=== PATIENT | male | born 1955 | race Caucasian/White ===

== ENCOUNTER → 2017-11-16 | Outpatient (CLI) | payer OTHER | END | disposition home or self-care (01) | LOC: CFH 08:57 | PROVIDERS: ATTEND Internal Medicine Cardiovascular Disease | DX: I11.9 Hypertensive heart disease without heart failure (principal) | CPT/HCPCS: 93306 ==

== ENCOUNTER → 2018-08-19 | Outpatient (CLI) | payer OTHER ==
[~2018-08-19] MED LIST: ACAM333T7 PO; ASPI81TA45 PO; ATOR20TA37 PO; GABA300C10 PO; LISI-170 PO
[2018-08-19 15:27] LABS: ALANINE AMINOTRANSFERASE 39 U/L (12-78); ANION GAP 13 mmol/L (5-15); CALCIUM 7.7 mg/dL (8.5-10.1); CHLORIDE 109 mmol/L (98-107)
[2018-08-19 15:29] LABS: ALKALINE PHOSPHATASE 82 U/L (45-117); BILIRUBIN,TOTAL 4.9 mg/dL (0.2-1.0); TOTAL PROTEIN 5.9 g/dL (6.4-8.2)
[2018-08-19 15:39] LABS: INTERNATIONAL NORMALIZED RATIO 0.99 (0.93-1.1); PROTHROMBIN TIME 10.4 Seconds (9.6-11.5)
[2018-08-19 15:49] LABS: BASOPHILS # (AUTO) 0.03 x10^3/uL (0-0.1); BASOPHILS % (AUTO) 1 % (0-1); EOSINOPHILS % (AUTO) 2 % (1-7); LYMPHOCYTES # (AUTO) 1.45 x10^3/uL (1-3.4); LYMPHOCYTES % (AUTO) 29 % (22-44); MD NO; MEAN CORPUSCULAR HEMOGLOBIN 36.2 pg (27.5-34.5); MEAN CORPUSCULAR HGB CONC 34.8 g/dL (33.2-36.2); MEAN CORPUSCULAR VOLUME 104.2 fL (81-97); MEAN PLATELET VOLUME 6.9 fL (7.4-10.4); MONOCYTES % (AUTO) 8 % (2-9); NEUTROPHILS # (AUTO) 3.08 x10^3/uL (1.8-6.8); NEUTROPHILS % (AUTO) 61 % (42-75); PLATELET COUNT 188 x10^3/uL (130-400); RED CELL DISTRIBUTION WIDTH 14.3 % (9.4-14.8)
[2018-08-19 16:00] LABS: HEMOGLOBIN A1C 4.3 % (4.2-6.3)
== END | disposition home or self-care (01) ==
LOC: STAR 14:04
PROVIDERS: ATTEND Orthopaedic Surgery
DX: Z01.818 Encounter for other preprocedural examination (principal); I49.1 Atrial premature depolarization; R00.0 Tachycardia, unspecified; M17.11 Unilateral primary osteoarthritis, right knee
CPT/HCPCS: 36415; 80053; 83036; 85025; 85610; 85730; 87081; 93005

== ENCOUNTER 2018-08-27 07:51 | Observation (INO) | payer OTHER ==
[~2018-08-27] VITALS: Ht 177.8 cm; Wt 88.1 kg
[2018-08-27] MEDS: NS + 20MEQ KCL 1,000 ML IV SCH ×2 (06:35→23:49)
[~2018-08-27 07:51] MED LIST changes: +ACETAMINOPHEN 650 MG/20.3 ML UDC PO PRN; +BISACODYL 10 MG SUPP PR PRN; +DIPHENHYDRAMINE 50 MG CAPSULE PO PRN; +EPINEPHRINE 1 MG/ML, 1ML ONE; +HYDROmorphone 2 MG/ML, 1ML IV PRN; +KETOROLAC 60 MG/2 ML ONE; +MAGNESIUM HYDROXIDE 8%, 30ML UDC PO PRN; +ONDANSETRON 2MG/ML, 2ML IV PRN; +ONDANSETRON 4 MG TABLET PO PRN; +OXYcodone IR 5MG TABLET PO PRN; +ROPIvacaine/PF 0.5%, 20 ML ONE; +SCOPOLAMINE PATCH, 1.5MG PATCH.TD72 TD ONE; +SENNA/DOCUSATE TABLET PO PRN; +SODIUM CHLORIDE 0.9% 100 ML ONE; +TRANEXAMIC ACID 100 MG/ML, 10ML ONE; +VANCOMYCIN 1,000 MG ONE; +ZOLPIDEM 5MG TABLET PO PRN
[2018-08-27] MEDS ORDERED: LACTATED RINGERS 1,000 ML IV SCH (08:24)
[2018-08-27] MEDS ORDERED: GABAPENTIN 300 MG CAPSULE PO ONE (08:30)
[2018-08-27] MEDS ORDERED: ACETAMINOPHEN 500 MG TABLET PO ONE (08:30)
[2018-08-27] MEDS ORDERED: FENTANYL PF 250 MCG/5ML ONE ×2 (08:44→10:55)
[2018-08-27] MEDS ORDERED: MIDAZOLAM 1 MG/ML, 2ML ONE (08:44)
[2018-08-27] MEDS ORDERED: ROPIvacaine/PF 0.2%, 20 ML ONE (08:47)
[2018-08-27] MEDS ORDERED: NEOSTIGMINE 1 MG/ML, 10ML ONE (08:48)
[2018-08-27] MEDS ORDERED: ROCURONIUM 10MG/ML,5ML ONE (08:48)
[2018-08-27] MEDS ORDERED: CEFAZOLIN 1,000 MG ONE (08:48)
[2018-08-27] MEDS ORDERED: GLYCOPYRROLATE 0.2MG/1ML, 5ML ONE (08:48)
[2018-08-27] MEDS ORDERED: ONDANSETRON 2MG/ML, 2ML ONE (08:48)
[2018-08-27] MEDS ORDERED: PROPOFOL 10 MG/ML, 20ML ONE (08:48)
[2018-08-27] MEDS: DOCUSATE 100 MG CAPSULE PO SCH ×2 (09:00→20:35)
[2018-08-27] MEDS: GABAPENTIN 300 MG CAPSULE PO SCH ×3 (09:00→20:35)
[2018-08-27] MEDS: LISINOPRIL 20 MG TABLET PO SCH (09:00)
[2018-08-27] MEDS ORDERED: TRANEXAMIC ACID 100 MG/ML, 10ML ONE (09:47)
[2018-08-27] MEDS ORDERED: MEPERIDINE/PF 25MG/0.5ML IVPush PRN (10:30)
[2018-08-27] MEDS ORDERED: PROMETHAZINE 12.5 MG SUPP PR PRN (10:30)
[2018-08-27] MEDS ORDERED: ONDANSETRON 2MG/ML, 2ML IV PRN (10:30)
[2018-08-27] MEDS ORDERED: hydrALAzine 20 MG/ML, 1ML IV PRN (10:30)
[2018-08-27] MEDS ORDERED: PROMETHAZINE 25 MG/ML, 1ML IV PRN (10:30)
[2018-08-27] MEDS ORDERED: OXYcodone 5 MG/5 ML ORAL.SOL UDC PO PRN (10:30)
[2018-08-27] MEDS ORDERED: PROMETHAZINE 25 MG/ML, 1ML IM PRN ×2 (10:30)
[2018-08-27] MEDS ORDERED: PROMETHAZINE 25 MG SUPP PR PRN (10:30)
[2018-08-27] MEDS ORDERED: HYDROmorphone 2 MG/ML, 1ML IVPush PRN (10:30)
[2018-08-27] MEDS ORDERED: MORPHINE SULFATE 4 MG/ML, 1ML IVPush PRN (10:30)
[2018-08-27] MEDS ORDERED: LABETALOL 5MG/ML, 20ML IV PRN (10:30)
[2018-08-27] MEDS ORDERED: ONDANSETRON ODT 8 MG PO PRN (10:30)
[2018-08-27] MEDS ORDERED: PHENYLEPHRINE 10 MG/ML ONE (10:31)
[2018-08-27] MEDS ORDERED: OXYcodone 5 MG/5 ML ORAL.SOL UDC ONE (12:02)
[2018-08-27] MEDS ORDERED: FENTANYL PF 100 MCG/2ML ONE (12:09)
[2018-08-27] MEDS: FENTANYL PF 100 MCG/2ML IV PRN ×2 (12:10→12:20)
[2018-08-27 13:45] VITALS: BP 137/73
[2018-08-27] MEDS: TAMSULOSIN 0.4 MG CAP.ER.24H PO SCH (18:38)
[2018-08-27] MEDS: ASPIRIN 81 MG TABLET EC PO SCH (18:38)
[2018-08-27] MEDS: CEFAZOLIN PMX 2GM/50ML 50 ML IVPB SCH (18:39)
[2018-08-27 19:15] VITALS: BP 144/76
[2018-08-27] MEDS: HYDROcodone/APAP 5/325 TABLET PO PRN (20:35)
[2018-08-27] MEDS ORDERED: ATORVASTATIN 20 MG TABLET PO SCH (21:00)
[2018-08-28 01:01] VITALS: BP 101/68
[2018-08-28] MEDS: HYDROcodone/APAP 5/325 TABLET PO PRN ×2 (01:39→08:28)
[2018-08-28] MEDS: CEFAZOLIN PMX 2GM/50ML 50 ML IVPB SCH (03:00)
[2018-08-28] MEDS ORDERED: DEXAMETHASONE 4 MG/ML, 1ML IVPush SCH (06:00)
[2018-08-28] MEDS: ASPIRIN 81 MG TABLET EC PO SCH (06:18)
[2018-08-28 07:13] VITALS: BP 143/81
[2018-08-28] MEDS: NS + 20MEQ KCL 1,000 ML IV SCH (07:35)
[2018-08-28] MEDS: TAMSULOSIN 0.4 MG CAP.ER.24H PO SCH (08:27)
[2018-08-28] MEDS: DOCUSATE 100 MG CAPSULE PO SCH (08:27)
[2018-08-28] MEDS: LISINOPRIL 20 MG TABLET PO SCH (08:28)
[2018-08-28] MEDS: GABAPENTIN 300 MG CAPSULE PO SCH (08:28)
[2018-08-28] MEDS ORDERED: OXYC5CAP2 PO (08:31)
[2018-08-28] MEDS ORDERED: TRAM50TA2 PO (08:32)
[2018-08-28] MEDS ORDERED: MELO7.5T31 PO (08:33)
== END 2018-08-28 09:20 | disposition home or self-care (01) ==
LOC: OUT 07:51 → 4NOR 12:54 → OUT 23:04 → DCLOUNGE 08-28 09:05
PROVIDERS: ADMIT Orthopaedic Surgery; ATTEND Orthopaedic Surgery
DX: M17.12 Unilateral primary osteoarthritis, left knee (principal); Z87.891 Personal history of nicotine dependence
CPT/HCPCS: 27447; 36415; 85014; 85018; 96365; 96366; 96375; 97161; 97166; C1713; C1776; G0378; J0171; J0690; J1100; J1885; J2250; J2370; J2405; J2704; J2710; J2795; J3010; J3370; J7120

== ENCOUNTER 2019-11-08 09:48 | Outpatient (CLI) | payer MEDICARE, OTHER ==
[~2019-11-08 09:48] MED LIST changes: -ACETAMINOPHEN 650 MG/20.3 ML UDC PO PRN; -BISACODYL 10 MG SUPP PR PRN; -DIPHENHYDRAMINE 50 MG CAPSULE PO PRN; -EPINEPHRINE 1 MG/ML, 1ML ONE; -HYDROmorphone 2 MG/ML, 1ML IV PRN; -KETOROLAC 60 MG/2 ML ONE; -MAGNESIUM HYDROXIDE 8%, 30ML UDC PO PRN; +MELO7.5T31 PO; -ONDANSETRON 2MG/ML, 2ML IV PRN; -ONDANSETRON 4 MG TABLET PO PRN; +OXYC5CAP2 PO; -OXYcodone IR 5MG TABLET PO PRN; -ROPIvacaine/PF 0.5%, 20 ML ONE; -SCOPOLAMINE PATCH, 1.5MG PATCH.TD72 TD ONE; -SENNA/DOCUSATE TABLET PO PRN; -SODIUM CHLORIDE 0.9% 100 ML ONE; +TRAM50TA2 PO; -TRANEXAMIC ACID 100 MG/ML, 10ML ONE; -VANCOMYCIN 1,000 MG ONE; -ZOLPIDEM 5MG TABLET PO PRN
== END 2019-11-08 23:59 | disposition home or self-care (01) ==
LOC: CFH 09:48
PROVIDERS: ATTEND Physician Assistant Medical
DX: R94.31 Abnormal electrocardiogram [ECG] [EKG] (principal)
CPT/HCPCS: 93306

== ENCOUNTER → 2019-11-28 | Outpatient (CLI) | payer MEDICARE | END | disposition home or self-care (01) | LOC: CARD 12:28 | PROVIDERS: ATTEND Physician Assistant Medical | DX: J44.9 Chronic obstructive pulmonary disease, unspecified (principal); R06.02 Shortness of breath; R94.31 Abnormal electrocardiogram [ECG] [EKG]; I10 Essential (primary) hypertension | CPT/HCPCS: 94060; 94726; 94729 ==

== ENCOUNTER 2019-12-01 13:58 | Inpatient (IN) | payer MEDICARE ==
[~2019-12-01] VITALS: Ht 177.8 cm; Wt 89.3 kg
[~2019-12-01 13:58] MED LIST changes: -METO-93 PO; -MIRT15TA94 PO; -RIVA1TAB PO; -RIVA20TA PO
[2019-12-01 14:59] LABS: MEAN CORPUSCULAR HEMOGLOBIN 37.5 pg (27.5-34.5); MEAN CORPUSCULAR HGB CONC 33.1 g/dL (33.2-36.2); MEAN CORPUSCULAR VOLUME 113.1 fL (81-97); PLATELET COUNT 168 x10^3/uL (130-400); RED BLOOD COUNT 3.46 x10^6/uL (4.38-5.82)
[2019-12-01 15:00] LABS: ALBUMIN 3.1 g/dL (3.4-5.0); ANION GAP 11 mmol/L (5-15); CALCIUM 8.2 mg/dL (8.5-10.1); CHLORIDE 110 mmol/L (98-107); CREATININE 1.04 mg/dL (0.7-1.3)
--- NOTE | 2019-12-01 15:05 | NUR ---
PT RESTING ON GURNEY W/ CALL LIGHT IN REACH AND SIDE RAILS UPX2. RESP EVEN AND UNLABORED, NADN. AWAITING CTA.
[2019-12-01 15:09] LABS: INTERNATIONAL NORMALIZED RATIO 0.98 (0.93-1.1); PROTHROMBIN TIME 10.1 Seconds (9.6-11.5)
[2019-12-01 15:14] LABS: BASOPHILS # (AUTO) 0.05 x10^3/uL (0-0.1); BASOPHILS % (AUTO) 1 % (0-1); EOSINOPHILS # (AUTO) 0.12 x10^3/uL (0-0.4); EOSINOPHILS % (AUTO) 2 % (1-7); LYMPHOCYTES # (AUTO) 0.58 x10^3/uL (1-3.4); LYMPHOCYTES % (AUTO) 10 % (22-44); MD SCAN; MONOCYTES # (AUTO) 0.26 x10^3/uL (0.2-0.8); MONOCYTES % (AUTO) 4 % (2-9); NEUTROPHILS # (AUTO) 4.81 x10^3/uL (1.8-6.8); NEUTROPHILS % (AUTO) 83 % (42-75)
[2019-12-01] MEDS ORDERED: OMNIPAQUE 350 MG/ML, 75ML BOTTLE ONE (15:42)
[2019-12-01] MEDS ORDERED: MIRT15TA94 PO (15:52)
[2019-12-01] MEDS ORDERED: METO-93 PO (15:52)
[2019-12-01] MEDS ORDERED: HEPARIN 5,000 UNITS/ML, 1ML IV ONE (16:30)
[2019-12-01] MEDS ORDERED: HEPARIN 5,000 UNITS/ML, 1ML ONE (16:31)
[2019-12-01] MEDS ORDERED: HEPARIN 25,000 UNITS/250ML PMX 250 ML ONE (16:31)
[2019-12-01] MEDS: HEPARIN 5,000 UNITS/ML, 1ML IV PRN (16:36)
[2019-12-01] MEDS: HEPARIN 25,000 UNITS/250ML PMX 250 ML IV PRN (16:40)
--- NOTE | 2019-12-01 16:41 | NUR ---
HEPARIN STARTED PER EMAR. ANTI XA ORDERED FOR 6 HOURS AFTER START. PT RESTING ON GURNEY W/C CALL LIGHT IN REACH, SIDE RAILS UPX2. RAF FABIAN. AWAITING ADMIT.
[2019-12-01] MEDS ORDERED: POTASSIUM CHLORIDE 20 MEQ TAB.ER.PRT PO ONE (17:00)
[2019-12-01] MEDS ORDERED: POTASSIUM CHLORIDE 20 MEQ TAB.ER.PRT ONE (17:22)
--- NOTE | 2019-12-01 17:46 | NUR ---
ATTEMPT TO CALL REPORT. RN UNAVAILBLE AT THIS TIME. WILL CALL BACK WHEN READY.
[2019-12-01] MEDS ORDERED: ONDANSETRON ODT 4 MG PO PRN (18:00)
[2019-12-01] MEDS ORDERED: METHOCARBAMOL 500 MG TABLET PO PRN (18:00)
[2019-12-01] MEDS ORDERED: ONDANSETRON 2MG/ML, 2ML IVPush PRN (18:00)
[2019-12-01] MEDS ORDERED: TRAZODONE 50MG TABLET PO PRN (18:00)
[2019-12-01] MEDS ORDERED: MELATONIN 5 MG TABLET PO PRN (18:00)
[2019-12-01] MEDS ORDERED: ACETAMINOPHEN 325 MG TABLET PO PRN (18:00)
[2019-12-01] MEDS: ACAMPROSATE 333 MG TABLET.DR PO SCH (21:07)
[2019-12-01] MEDS: GABAPENTIN 300 MG CAPSULE PO SCH (21:07)
[2019-12-01] MEDS: LACTATED RINGERS 1,000 ML IV SCH (21:08)
[2019-12-01 21:45] VITALS: BP 128/65
[2019-12-02] MEDS: HEPARIN 5,000 UNITS/ML, 1ML IV PRN ×3 (00:33→14:28)
[2019-12-02 02:44] VITALS: BP 118/68
[2019-12-02 05:52] LABS: ALBUMIN 2.4 g/dL (3.4-5.0); ANION GAP 7 mmol/L (5-15); CALCIUM 8.1 mg/dL (8.5-10.1); CHLORIDE 112 mmol/L (98-107)
[2019-12-02 05:59] LABS: ALANINE AMINOTRANSFERASE 33 U/L (12-78); ALKALINE PHOSPHATASE 97 U/L (45-117); BILIRUBIN,TOTAL 1.1 mg/dL (0.2-1.0); CHOL/HDL RATIO 4.3; CHOLESTEROL, TOTAL 147 mg/dL (140-239); HDL CHOL % 23 % (26-37); HDL CHOLESTEROL (DIRECT) 34 mg/dL (40-60); LDL CHOLESTEROL,CALCULATED 77 mg/dL (54-169); LDL/HDL RATIO 2.3 (0.5-3.0); TOTAL PROTEIN 5.5 g/dL (6.4-8.2); TRIGLYCERIDES 178 mg/dL (50-200); VLDL CHOLESTEROL 36 mg/dL (0-25)
[2019-12-02 06:09] LABS: MEAN CORPUSCULAR HEMOGLOBIN 37.5 pg (27.5-34.5); MEAN CORPUSCULAR HGB CONC 33.4 g/dL (33.2-36.2); MEAN CORPUSCULAR VOLUME 112.1 fL (81-97); PLATELET COUNT 133 x10^3/uL (130-400); RED BLOOD COUNT 2.82 x10^6/uL (4.38-5.82)
[2019-12-02] MEDS: LACTATED RINGERS 1,000 ML IV SCH ×2 (06:37→17:00)
[2019-12-02 06:38] LABS: LYMPHOCYTES % (AUTO) 19 % (22-44); MONOCYTES % (AUTO) 7 % (2-9); NEUTROPHILS % (AUTO) 67 % (42-75)
[2019-12-02 06:39] LABS: BASOPHILS # (AUTO) 0.08 x10^3/uL (0-0.1); BASOPHILS % (AUTO) 2 % (0-1); EOSINOPHILS # (AUTO) 0.16 x10^3/uL (0-0.4); EOSINOPHILS % (AUTO) 4 % (1-7); LYMPHOCYTES # (AUTO) 0.69 x10^3/uL (1-3.4); MD SCAN; MONOCYTES # (AUTO) 0.27 x10^3/uL (0.2-0.8); NEUTROPHILS # (AUTO) 2.47 x10^3/uL (1.8-6.8)
[2019-12-02 07:22] VITALS: BP 133/74
[2019-12-02] MEDS: GABAPENTIN 300 MG CAPSULE PO SCH ×2 (08:04→16:28)
[2019-12-02] MEDS: ACAMPROSATE 333 MG TABLET.DR PO SCH ×2 (08:04→16:27)
[2019-12-02] MEDS ORDERED: ASPIRIN 81 MG TABLET EC PO SCH (09:00)
[2019-12-02] MEDS ORDERED: MIRTAZAPINE 15 MG TAB.RAPDIS PO SCH (09:00)
[2019-12-02] MEDS ORDERED: METOPROLOL SUCCINATE 50 MG TAB.ER.24H PO SCH (09:00)
[2019-12-02 12:55] VITALS: BP 131/72
[2019-12-02] MEDS: HEPARIN 25,000 UNITS/250ML PMX 250 ML IV PRN (13:13)
[2019-12-02] MEDS ORDERED: RIVA1TAB PO (14:48)
[2019-12-02] MEDS ORDERED: RIVA20TA PO (14:48)
== END 2019-12-02 18:35 | disposition home or self-care (01) | DRG 299 ==
LOC: ED 15:45 → SUATTDRO 17:00 → 5SO 18:19
PROVIDERS: ADMIT Internal Medicine; ATTEND Internal Medicine
DX: I82.411 Acute embolism and thrombosis of right femoral vein (principal); I26.09 Other pulmonary embolism with acute cor pulmonale; J96.01 Acute respiratory failure with hypoxia; I82.441 Acute embolism and thrombosis of right tibial vein; I82.431 Acute embolism and thrombosis of right popliteal vein; Z96.651 Presence of right artificial knee joint; E87.6 Hypokalemia; Z87.891 Personal history of nicotine dependence
CPT/HCPCS: 36415; 71275; 80048; 80053; 80061; 82040; 82378; 83735; 84100; 85025; 85520; 85610; 93005; 93308; 93321; 93325; G0103; G0378; J1644; Q9967; J7120

== ENCOUNTER → 2019-12-01 | Outpatient (CLI) | payer MEDICARE ==
[~2019-12-01] MED LIST changes: +METO-93 PO; +MIRT15TA94 PO; +RIVA1TAB PO; +RIVA20TA PO
== END | disposition home or self-care (01) ==
LOC: CFH 12:15
PROVIDERS: ATTEND Physician Assistant Surgical
DX: I82.411 Acute embolism and thrombosis of right femoral vein (principal); I82.431 Acute embolism and thrombosis of right popliteal vein; I82.441 Acute embolism and thrombosis of right tibial vein

== ENCOUNTER 2020-01-09 12:22 | Outpatient (CLI) | payer MEDICARE ==
[~2020-01-09 12:22] MED LIST changes: +METO-93 PO; +MIRT15TA94 PO; +RIVA1TAB PO; +RIVA20TA PO
[2020-01-11] MEDS ORDERED: REGADENOSON 0.4 MG/5 ML SYRINGE ONE (11:20)
== END 2020-01-09 23:59 | disposition home or self-care (01) ==
LOC: CFH 12:22
PROVIDERS: ATTEND Physician Assistant Medical
DX: I10 Essential (primary) hypertension (principal); R94.31 Abnormal electrocardiogram [ECG] [EKG]; R06.02 Shortness of breath; J44.9 Chronic obstructive pulmonary disease, unspecified
CPT/HCPCS: 78452; 93017; A9502

== ENCOUNTER → 2020-05-23 | Outpatient (CLI) | payer MEDICARE ==
[~2020-05-23] MED LIST changes: +OMNIPAQUE 350 MG/ML, 100ML BOTTLE ONE
== END | disposition home or self-care (01) ==
LOC: CFH 07:27
PROVIDERS: ATTEND Family Medicine
DX: K76.0 Fatty (change of) liver, not elsewhere classified (principal); D44.12 Neoplasm of uncertain behavior of left adrenal gland; E27.8 Other specified disorders of adrenal gland; N20.0 Calculus of kidney; I70.0 Atherosclerosis of aorta
CPT/HCPCS: 74160; Q9967

== ENCOUNTER 2020-10-03 11:49 | Inpatient (IN) | payer MEDICARE ==
[~2020-10-03] VITALS: Ht 177.8 cm; Wt 82.8 kg
[~2020-10-03 11:49] MED LIST changes: -OMNIPAQUE 350 MG/ML, 100ML BOTTLE ONE
--- NOTE | 2020-10-03 11:52 | NUR ---
PT BROUHGT IN BY WILLARD FROM HOME WITH CHIEF COMPLAINT OF SOB/DIZZY, FREQUENT FALLS SINCE COLONOSCOPY THURSDAY. PT IS ALERT AND ORIENTED, ABLE TO SPEAK FULL SENTANCES
[2020-10-03] MEDS ORDERED: SODIUM CHLORIDE 0.9% 1,000ML IVBOLUS ONE ×3 (12:00→13:30)
[2020-10-03] MEDS ORDERED: SODIUM CHLORIDE FLUSH 10ML SYR IVF ONE (12:00)
--- NOTE | 2020-10-03 12:13 | NUR ---
PT TO IMAGING
--- NOTE | 2020-10-03 12:23 | NUR ---
PT DENIES NEURO CHANGES
--- NOTE | 2020-10-03 12:54 | NUR ---
PT RESTING IN BED, CALL LIGHT IN REACH.
[2020-10-03 12:59] LABS: ALBUMIN 2.6 g/dL (3.4-5.0); BASOPHILS % (AUTO) 0 % (0-1); EOSINOPHILS % (AUTO) 0 % (1-7); LYMPHOCYTES % (AUTO) 6 % (22-44); MEAN CORPUSCULAR HEMOGLOBIN 36.3 pg (27.5-34.5); MEAN CORPUSCULAR HGB CONC 33.1 g/dL (33.2-36.2); MEAN PLATELET VOLUME 10.1 fL (7.4-10.4); MONOCYTES % (AUTO) 9 % (2-9); NEUTROPHILS % (AUTO) 85 % (42-75); PLATELET COUNT 144 x10^3/uL (130-400); RED BLOOD COUNT 3.14 x10^6/uL (4.38-5.82); RED CELL DISTRIBUTION WIDTH 13.7 % (9.4-14.8)
[2020-10-03 13:03] LABS: TROPONIN I < 0.015 ng/mL (0.000-0.045)
[2020-10-03 13:06] LABS: ANION GAP 27 mmol/L (5-15); CHLORIDE 102 mmol/L (98-107)
--- NOTE | 2020-10-03 13:25 | NUR ---
KODY JOHNSON AT BEDSIDE
[2020-10-03] MEDS ORDERED: SODIUM BICARBONATE 8.4% 150 MEQ in DEXTROSE 5% 1,000 ML IV ONE (13:30)
[2020-10-03] MEDS ORDERED: PANTOPRAZOLE 80 MG in SODIUM CHLORIDE 0.9% 50 ML IVPB ONE (14:00)
[2020-10-03] MEDS ORDERED: PANTOPRAZOLE 80 MG in SODIUM CHLORIDE 0.9% 100 ML IV SCH (14:00)
--- NOTE | 2020-10-03 14:17 | NUR ---
MD HERNANDEZ AT BEDSIDE TO EDWIGE
[2020-10-03] MEDS ORDERED: SODIUM BICARBONATE 8.4% 150 MEQ in DEXTROSE 5% 1,000 ML IV SCH (14:30)
[2020-10-03] MEDS ORDERED: MELATONIN 5 MG TABLET PO PRN (14:30)
[2020-10-03] MEDS ORDERED: ONDANSETRON 2MG/ML, 2ML IVPush PRN (14:30)
[2020-10-03] MEDS ORDERED: DOCUSATE 100 MG CAPSULE PO PRN (14:30)
[2020-10-03] MEDS ORDERED: HEPARIN 5,000 UNITS/ML, 1ML SQ SCH (14:30)
[2020-10-03] MEDS ORDERED: hydrALAzine 20 MG/ML, 1ML IVPush PRN (14:30)
[2020-10-03 14:50] LABS: PROTHROMBIN TIME 10.7 Seconds (9.6-11.5)
--- NOTE | 2020-10-03 14:59 | NUR ---
CT WAITING FOR LAB AND CENTRAL LINE TO BE FINISHED
[2020-10-03] MEDS ORDERED: CALCIUM GLUCONATE 4.6 MEQ in SODIUM CHLORIDE 0.9% 100 ML IV ONE (15:00)
--- NOTE | 2020-10-03 15:04 | NUR ---
CVAD PLACED BY KODY JOHNSON PT TOLERATED WELL.
[2020-10-03 15:09] LABS: O2 FLOW ROOM AIR L/min
--- NOTE | 2020-10-03 15:09 | NUR ---
Pt to CT
[2020-10-03 15:10] LABS: MICROSCOPIC INDICATED
--- NOTE | 2020-10-03 15:25 | NUR ---
Report called to Pao TAYLOR,
[2020-10-03] MEDS: SODIUM BICARBONATE 8.4% 150 MEQ in DEXTROSE 5% 1,000 ML IV SCH ×2 (15:45→19:28)
[2020-10-03 16:05] LABS: ACETONE, SERUM Moderate(40mg/dL) (Negative); ALBUMIN 2.6 g/dL (3.4-5.0)
[2020-10-03 16:35] LABS: BILIRUBIN, DIRECT 0.3 mg/dL (0.1-0.2); BILIRUBIN,INDIRECT 0.3 mg/dL (0.0-2.0); BILIRUBIN,TOTAL 0.6 mg/dL (0.2-1.0); FREE T4 (FREE THYROXINE) 0.7 ng/dL (0.76-1.46); TOTAL PROTEIN 6.6 g/dL (6.4-8.2)
[2020-10-03 17:24] LABS: ANION GAP 25 mmol/L (5-15); CHLORIDE 105 mmol/L (98-107)
[2020-10-03 17:32] LABS: POTASSIUM,URINE RANDOM 24 mmol/L; SODIUM,URINE RANDOM 13 mmol/L
[2020-10-03 17:47] LABS: CALCIUM 5.5 mg/dL (8.5-10.1)
[2020-10-03 17:48] LABS: CHLORIDE,URINE RANDOM < 10 mmol/L
[2020-10-03] MEDS: NOREPINEPHRINE 8 MG in SODIUM CHLORIDE 0.9% 242 ML IV PRN ×2 (18:30→18:45)
[2020-10-03] MEDS: PANTOPRAZOLE 40 MG IV IVPush SCH (22:44)
[2020-10-04] MEDS: SODIUM BICARBONATE 8.4% 150 MEQ in DEXTROSE 5% 1,000 ML IV SCH (04:01)
[2020-10-04] MEDS: NOREPINEPHRINE 8 MG in SODIUM CHLORIDE 0.9% 242 ML IV PRN ×2 (04:02→20:47)
[2020-10-04 04:37] LABS: BASOPHILS % (AUTO) 0 % (0-1); EOSINOPHILS % (AUTO) 1 % (1-7); LYMPHOCYTES % (AUTO) 15 % (22-44); MEAN CORPUSCULAR HEMOGLOBIN 37.4 pg (27.5-34.5); MEAN CORPUSCULAR HGB CONC 35.5 g/dL (33.2-36.2); MEAN PLATELET VOLUME 9.3 fL (7.4-10.4); MONOCYTES % (AUTO) 11 % (2-9); NEUTROPHILS % (AUTO) 74 % (42-75); PLATELET COUNT 89 x10^3/uL (130-400); RED BLOOD COUNT 2.59 x10^6/uL (4.38-5.82); RED CELL DISTRIBUTION WIDTH 13.9 % (9.4-14.8)
[2020-10-04 04:42] LABS: ALANINE AMINOTRANSFERASE 15 U/L (12-78); ALBUMIN 2.1 g/dL (3.4-5.0); ANION GAP 15 mmol/L (5-15); CALCIUM 6.3 mg/dL (8.5-10.1); CHLORIDE 102 mmol/L (98-107); CHOLESTEROL, TOTAL 179 mg/dL (140-239); CREATININE 7.57 mg/dL (0.7-1.3)
[2020-10-04 04:44] LABS: ALKALINE PHOSPHATASE 81 U/L (45-117); BILIRUBIN,TOTAL 0.6 mg/dL (0.2-1.0); CHOL/HDL RATIO 6.9; HDL CHOL % 15 % (26-37); HDL CHOLESTEROL (DIRECT) 26 mg/dL (40-60); LDL CHOLESTEROL,CALCULATED 83 mg/dL (54-169); LDL/HDL RATIO 3.2 (0.5-3.0); TOTAL PROTEIN 5.2 g/dL (6.4-8.2); TRIGLYCERIDES 351 mg/dL (50-200); VLDL CHOLESTEROL 70 mg/dL (0-25)
[2020-10-04] MEDS: PANTOPRAZOLE 40 MG IV IVPush SCH (08:18)
[2020-10-04] MEDS: SODIUM BICARBONATE 8.4% 75 MEQ in SODIUM CHLORIDE 0.45% 1,000 ML IV SCH ×2 (11:01→18:33)
[2020-10-04] MEDS: PANTOPRAZOLE 40MG TABLET PO SCH (19:34)
[2020-10-04] MEDS: ACETAMINOPHEN 325 MG TABLET PO PRN (20:25)
[2020-10-05] MEDS: SODIUM BICARBONATE 8.4% 75 MEQ in SODIUM CHLORIDE 0.45% 1,000 ML IV SCH (02:43)
[2020-10-05 03:36] LABS: BASOPHILS % (AUTO) 1 % (0-1); EOSINOPHILS % (AUTO) 1 % (1-7); LYMPHOCYTES % (AUTO) 14 % (22-44); MEAN CORPUSCULAR HEMOGLOBIN 37.4 pg (27.5-34.5); MEAN PLATELET VOLUME 8.9 fL (7.4-10.4); MONOCYTES % (AUTO) 15 % (2-9); NEUTROPHILS % (AUTO) 70 % (42-75); PLATELET COUNT 59 x10^3/uL (130-400); RED BLOOD COUNT 2.43 x10^6/uL (4.38-5.82)
[2020-10-05 03:45] LABS: ANION GAP 5 mmol/L (5-15); CALCIUM 6.7 mg/dL (8.5-10.1); CHLORIDE 99 mmol/L (98-107); CREATININE 2.95 mg/dL (0.7-1.3)
[2020-10-05] MEDS: ACETAMINOPHEN 325 MG TABLET PO PRN ×2 (04:20→18:55)
[2020-10-05] MEDS: PANTOPRAZOLE 40MG TABLET PO SCH ×2 (06:02→17:01)
[2020-10-05] MEDS: CALCITRIOL 0.25 MCG CAPSULE PO SCH (09:17)
[2020-10-05] MEDS: POTASSIUM CHLORIDE 20 MEQ in SODIUM CHLORIDE 0.9% 1,000 ML IV SCH (14:07)
[2020-10-05 19:51] VITALS: BP 115/67
[2020-10-06] MEDS: POTASSIUM CHLORIDE 20 MEQ in SODIUM CHLORIDE 0.9% 1,000 ML IV SCH ×3 (01:21→22:27)
[2020-10-06 01:38] VITALS: BP 121/68
[2020-10-06] MEDS: PANTOPRAZOLE 40MG TABLET PO SCH ×2 (05:15→17:56)
[2020-10-06 06:02] LABS: BASOPHILS % (AUTO) 1 % (0-1); EOSINOPHILS % (AUTO) 4 % (1-7); LYMPHOCYTES % (AUTO) 13 % (22-44); MEAN CORPUSCULAR HEMOGLOBIN 37.3 pg (27.5-34.5); MEAN CORPUSCULAR HGB CONC 34.6 g/dL (33.2-36.2); MEAN PLATELET VOLUME 9.6 fL (7.4-10.4); MONOCYTES % (AUTO) 10 % (2-9); NEUTROPHILS % (AUTO) 73 % (42-75); PLATELET COUNT 62 x10^3/uL (130-400); RED BLOOD COUNT 2.46 x10^6/uL (4.38-5.82); RED CELL DISTRIBUTION WIDTH 13.1 % (9.4-14.8)
[2020-10-06 06:13] LABS: ANION GAP 5 mmol/L (5-15); CALCIUM 7.9 mg/dL (8.5-10.1); CHLORIDE 110 mmol/L (98-107)
[2020-10-06 07:28] VITALS: BP 128/69
[2020-10-06] MEDS: CALCITRIOL 0.25 MCG CAPSULE PO SCH (09:24)
[2020-10-06 13:44] VITALS: BP 144/75
[2020-10-06 20:00] VITALS: BP 145/75
[2020-10-06] MEDS: ACETAMINOPHEN 325 MG TABLET PO PRN (20:47)
[2020-10-07 01:59] VITALS: BP 115/65
[2020-10-07] MEDS: ACETAMINOPHEN 325 MG TABLET PO PRN ×3 (05:06→23:56)
[2020-10-07] MEDS: PANTOPRAZOLE 40MG TABLET PO SCH ×2 (05:06→16:15)
[2020-10-07 05:17] LABS: BASOPHILS % (AUTO) 0 % (0-1); EOSINOPHILS % (AUTO) 5 % (1-7); LYMPHOCYTES % (AUTO) 15 % (22-44); MEAN CORPUSCULAR HGB CONC 34.7 g/dL (33.2-36.2); MEAN PLATELET VOLUME 9.2 fL (7.4-10.4); MONOCYTES % (AUTO) 9 % (2-9); NEUTROPHILS % (AUTO) 71 % (42-75); PLATELET COUNT 70 x10^3/uL (130-400); RED BLOOD COUNT 2.48 x10^6/uL (4.38-5.82); RED CELL DISTRIBUTION WIDTH 13.1 % (9.4-14.8)
[2020-10-07 05:21] LABS: ALBUMIN 1.8 g/dL (3.4-5.0); ANION GAP 5 mmol/L (5-15); CALCIUM 7.8 mg/dL (8.5-10.1); CHLORIDE 113 mmol/L (98-107)
[2020-10-07 05:26] LABS: ALANINE AMINOTRANSFERASE 12 U/L (12-78); ALKALINE PHOSPHATASE 78 U/L (45-117); BILIRUBIN,TOTAL 0.7 mg/dL (0.2-1.0); CREATININE 1.25 mg/dL (0.7-1.3); TOTAL PROTEIN 5.3 g/dL (6.4-8.2)
[2020-10-07] MEDS: CALCITRIOL 0.25 MCG CAPSULE PO SCH (08:20)
[2020-10-07 08:43] VITALS: BP 136/77
[2020-10-07 13:14] VITALS: BP 139/86
[2020-10-08 00:32] VITALS: BP 130/76
[2020-10-08] MEDS: PANTOPRAZOLE 40MG TABLET PO SCH ×2 (05:54→16:42)
[2020-10-08 06:16] LABS: BASOPHILS % (AUTO) 1 % (0-1); EOSINOPHILS % (AUTO) 7 % (1-7); LYMPHOCYTES % (AUTO) 17 % (22-44); MEAN CORPUSCULAR HEMOGLOBIN 37.2 pg (27.5-34.5); MEAN CORPUSCULAR HGB CONC 34.7 g/dL (33.2-36.2); MEAN PLATELET VOLUME 8.6 fL (7.4-10.4); MONOCYTES % (AUTO) 7 % (2-9); NEUTROPHILS % (AUTO) 68 % (42-75); PLATELET COUNT 80 x10^3/uL (130-400); RED CELL DISTRIBUTION WIDTH 13.2 % (9.4-14.8)
[2020-10-08 06:22] LABS: ANION GAP 5 mmol/L (5-15); CALCIUM 8.3 mg/dL (8.5-10.1); CHLORIDE 113 mmol/L (98-107); CREATININE 1.09 mg/dL (0.7-1.3)
[2020-10-08 07:45] VITALS: BP 144/78
[2020-10-08] MEDS: CALCITRIOL 0.25 MCG CAPSULE PO SCH (08:43)
[2020-10-08 12:58] VITALS: BP 124/74
[2020-10-08] MEDS ORDERED: ERGOCALCIFEROL 50,000 UNIT CAPSULE PO SCH (13:00)
[2020-10-08 18:56] VITALS: BP 128/65
[2020-10-08] MEDS: ACETAMINOPHEN 325 MG TABLET PO PRN (23:04)
[2020-10-09 00:23] VITALS: BP 135/65
[2020-10-09] MEDS: PANTOPRAZOLE 40MG TABLET PO SCH ×2 (05:52→17:16)
[2020-10-09 06:08] LABS: BASOPHILS % (AUTO) 1 % (0-1); EOSINOPHILS % (AUTO) 7 % (1-7); LYMPHOCYTES % (AUTO) 19 % (22-44); MEAN CORPUSCULAR HEMOGLOBIN 36.7 pg (27.5-34.5); MEAN CORPUSCULAR HGB CONC 34.8 g/dL (33.2-36.2); MEAN PLATELET VOLUME 8.4 fL (7.4-10.4); MONOCYTES % (AUTO) 9 % (2-9); NEUTROPHILS % (AUTO) 65 % (42-75); PLATELET COUNT 96 x10^3/uL (130-400); RED CELL DISTRIBUTION WIDTH 13.2 % (9.4-14.8)
[2020-10-09 06:14] LABS: ANION GAP 6 mmol/L (5-15); CHLORIDE 114 mmol/L (98-107); CREATININE 0.96 mg/dL (0.7-1.3)
[2020-10-09 06:15] LABS: ALBUMIN 1.8 g/dL (3.4-5.0)
[2020-10-09 07:03] VITALS: BP 151/77
[2020-10-09] MEDS ORDERED: PANT20TA2 PO (09:57)
[2020-10-09] MEDS ORDERED: METO25TA91 PO (09:57)
[2020-10-09] MEDS ORDERED: THIA100T27 PO (09:57)
[2020-10-09] MEDS ORDERED: THIA100T67 PO (09:57)
[2020-10-09] MEDS ORDERED: MULT-449 PO (09:57)
[2020-10-09] MEDS ORDERED: THIAMINE 100MG TABLET PO SCH (10:00)
[2020-10-09] MEDS ORDERED: MULTIVIT.W/IRON, MINERALS ORAL SOL PO SCH (10:00)
== END 2020-10-09 18:01 | DRG 682 ==
LOC: ED 13:03 → EDIP 14:26 → CCU 15:42 → 4EST 10-05 17:09
PROVIDERS: ADMIT Hospitalist; ATTEND Internal Medicine
PROC: 02HV33Z Insertion of Infusion Device into Superior Vena Cava, Percutaneous Approach (ICD-10-PCS; principal; 2020-10-03)
PROC: 02HV33Z Insertion of Infusion Device into Superior Vena Cava, Percutaneous Approach (ICD-10-PCS; 2020-10-03)
PROC: 5A1D70Z Performance of Urinary Filtration, Intermittent, Less than 6 Hours Per Day (ICD-10-PCS; 2020-10-03)
PROC: B548ZZA Ultrasonography of Superior Vena Cava, Guidance (ICD-10-PCS; 2020-10-03)
PROC: B548ZZA Ultrasonography of Superior Vena Cava, Guidance (ICD-10-PCS; 2020-10-03)
PROC: 0T9B70Z Drainage of Bladder with Drainage Device, Via Natural or Artificial Opening (ICD-10-PCS; 2020-10-03)
PROC: 5A1D70Z Performance of Urinary Filtration, Intermittent, Less than 6 Hours Per Day (ICD-10-PCS; 2020-10-04)
PROC: 5A1D70Z Performance of Urinary Filtration, Intermittent, Less than 6 Hours Per Day (ICD-10-PCS; 2020-10-05)
DX: N17.0 Acute kidney failure with tubular necrosis (principal); G93.41 Metabolic encephalopathy; R57.1 Hypovolemic shock; K92.2 Gastrointestinal hemorrhage, unspecified; I50.32 Chronic diastolic (congestive) heart failure; E44.0 Moderate protein-calorie malnutrition; E87.4 Mixed disorder of acid-base balance; E87.5 Hyperkalemia; N25.81 Secondary hyperparathyroidism of renal origin; D53.9 Nutritional anemia, unspecified; D69.6 Thrombocytopenia, unspecified; D72.829 Elevated white blood cell count, unspecified; E55.9 Vitamin D deficiency, unspecified; E87.6 Hypokalemia; I11.0 Hypertensive heart disease with heart failure; I77.810 Thoracic aortic ectasia; N20.0 Calculus of kidney; Z82.3 Family history of stroke; Z86.711 Personal history of pulmonary embolism; Z86.718 Personal history of other venous thrombosis and embolism; Z90.49 Acquired absence of other specified parts of digestive tract; Z96.651 Presence of right artificial knee joint; F10.20 Alcohol dependence, uncomplicated; Z79.899 Other long term (current) drug therapy
CPT/HCPCS: 36415; 36556; 36600; 70450; 71045; 74176; 80048; 80053; 80061; 80069; 80076; 81001; 82010; 82040; 82140; 82306; 82330; 82436; 82533; 82550; 82570; 82607; 82728; 82803; 83540; 83550; 83605; 83690; 83735; 83880; 83930; 83970; 84100; 84133; 84145; 84156; 84300; 84439; 84443; 84484; 85014; 85018; 85025; 85610; 86022; 86705; 86706; 87040; 87081; 87086; 87340; 90935; 93005; 96361; 96365; 99292; G0378; J0610; J3480; J7070; C1751; C9113; J1642; J7030; J7050